=== PATIENT | male | born 1990 | race African-American/Black ===

== ENCOUNTER 2022-02-03 02:32 | Emergency (ER) | payer SELFPAY ==
[~2022-02-03] VITALS: Ht 185.4 cm; Wt 122.1 kg
[2022-02-03 02:54] VITALS: BP 136/78
== END 2022-02-03 07:38 | disposition left against medical advice (07) ==
LOC: ER 02:32
DX: M79.601 Pain in right arm (principal); Z53.21 Procedure and treatment not carried out due to patient leaving prior to being seen by health care provider; Y04.8XXA Assault by other bodily force, initial encounter; Y93.89 Activity, other specified; Y92.89 Other specified places as the place of occurrence of the external cause; Y99.8 Other external cause status
CPT/HCPCS: 73060; 73090; 73130